=== PATIENT | male | born 1965 | race Caucasian/White ===

== ENCOUNTER → 2016-11-19 | Outpatient (CLI) | payer OTHER | LOC: FIMAGING 09:14 | PROVIDERS: ATTEND Physician Assistant | DX: K70.30 Alcoholic cirrhosis of liver without ascites (principal); K80.20 Calculus of gallbladder without cholecystitis without obstruction; N28.1 Cyst of kidney, acquired ==

== ENCOUNTER 2017-01-01 15:23 | Observation (INO) | payer OTHER ==
--- NOTE | 2017-01-01 17:14 | EDPHY ---
H & P Stated Complaint: Epigastric, RUQ abdo pain, chills. Time Seen by Provider: 01/01/17 17:01 - Personal History Current Tetanus/Diphtheria Vaccine: Unsure Current Tetanus Diphtheria and Acellular Pertussis (TDAP): Unsure - Medical/Surgical History Hx Asthma: No Hx Chronic Respiratory Disease: No Hx Diabetes: No Hx Cardiac Disease: No Hx Renal Disease: No Hx Cirrhosis: Yes Hx Alcoholism: Yes Hx HIV/AIDS: No Hx Splenectomy or Spleen Trauma: No Other PMH: Gall stones, alcoholism-last drink 3 years, oesophageal varies. - Social History Smoking Status: Former smoker Constitutional: Initial Vital Signs Temperature (C) 36.9 C 01/01/17 16:03 Heart Rate 71 01/01/17 16:03 Respiratory Rate 16 01/01/17 16:03 Blood Pressure 127/80 H 01/01/17 16:03 O2 Sat (%) 97 01/01/17 16:03 O2 Delivery Mode Room Air Allergies/Adverse Reactions: No Known Allergies Allergy (Verified 01/01/17 16:08) Home Medications: Medication Instructions Recorded Albuterol Sulfate [Proair Hfa] 1 - 2 puffs IH Q4-6PRN PRN 01/01/17 Cholecalciferol Vit D3 [Vitamin D3] 400 units PO DAILY 01/01/17 Furosemide [Lasix 40 MG (*)] 80 mg PO DAILY 01/01/17 Multivitamins [Multivitamin (*)] 1 each PO DAILY 01/01/17 Rifaximin [Xifaxan] 550 mg PO BID 01/01/17 Spironolactone [Aldactone 50 MG 100 mg PO DAILY 01/01/17 (RX)] Medical Decision Making - Diagnostics Imaging Results: Imaging Impressions Abdomen Ultrasound 01/01/17 17:14 Impression: 1. Cholelithiasis in association with right upper quadrant Alex sign may reflect acute cholecystitis. As clinically directed a HIDA scan could be considered for further assessment. 2. Lobulated hepatic contour consistent with cirrhosis. Results called and discussed with Chau Barker MD on 01/01/2017 at 18:22 Imaging: Discussed imaging studies w/ cell cleaner Radiologist ED Course/Re-evaluation: CHIEF COMPLAINT: Abdominal pain HISTORY OF PRESENT ILLNESS: The patient is a 51 y/o male with known gallstones complaining of abdominal pain onset 3 days ago. He says, "it hurts when I drink water or eat" and he's had an associated weight loss of 2-3lbs per day since onset. His last ultrasound 1.5 years ago showed 3 gallstones. He is followed by his GI, Dr. Romero. He denies vomiting, diarrhea, fever, chest pain, or dyspnea. REVIEW OF SYSTEMS: A 10 point review of systems was performed and is negative with the exception of the elements mentioned in the history of present illness. PHYSICAL EXAM: HR, BP, O2 Sat, RR. Temp noted General Appearance: Alert, well hydrated, appropriate, and non-toxic appearing. Head: Atraumatic without scalp tenderness or obvious injury Eyes: Pupils equal, round, reactive to light and accommodation, EOMI, no trauma , no injection. Nose: Atraumatic, no rhinorrhea, clear. Throat: Mucus membranes moist. Neck: Supple Respiratory: No retractions, no distress, no wheezes, and no accessory muscle use. Lungs are clear to auscultation bilaterally. Cardiovascular: Regular rate and rhythm, no murmurs, rubs, or gallops. Good capillary refill all extremities. Gastrointestinal: Abdomen is soft, Alex's sign with RUQ tenderness, non- distended, no masses, no rebound, no guarding, no peritoneal signs. Musculoskeletal: Normal active ROM of all extremities, atraumatic. Neurological: Alert, appropriate, and interactive. Nonfocal neuro exam. Skin: No rashes, good turgor, no nodules on palpation. PAST MEDICAL HISTORY: gallstones, history of alcoholic ascites PAST SURGICAL HISTORY: denies SOCIAL HISTORY: Lives with his parents. History of alcoholism, reports current sobriety DIAGNOSTICS/PROCEDURES/CRITICAL CARE TIME: RUQ US: Cholelithiasis DIFFERENTIAL DIAGNOSIS: The differential diagnosis for the patient's abdominal pain included but was not limited to appendicitis, cholecystitis, hernias, testicular torsion, gastritis, and urinary tract infection. MEDICAL DECISION MAKING: This is a 51 y/o male with a history of alcoholism and known gallstones who presents with a 3-day history of RUQ pain, weight loss, and difficulty eating due to pain. He has a positive Alex's sign and RUQ tenderness without peritoneal signs on exam. Plan for IV, labs including LFTs, and RUQ US to rule out cholecystitis. US shows cholelithiasis. WBC elevated indicates infection. Surgeon paged. 1mg IV Dilaudid administered for pain. 184: Consulted with Dr. Juan, surgeon. He will assess patient in the ED. Dr. Juan recommends a HIDA scan and will consult during admission. Dr. Ponce will admit patient for possible cholecystitis and ongoing abdominal pain. - Data Points Laboratory Results: Laboratory Results 01/01/17 17:10 01/01/17 17:10 01/01/17 01/01/17 01/01/17 17:10 17:10 17:10 WBC 10.83 10^3/uL H 10^3/uL (3.80-9.50) RBC 5.38 10^6/uL 10^6/uL (4.40-6.38) Hgb 17.3 g/dL g/dL (13.7-17.5) Hct 48.2 % % (40.0-51.0) MCV 89.6 fL fL (81.5-99.8) MCH 32.2 pg pg (27.9-34.1) MCHC 35.9 g/dL g/dL (32.4-36.7) RDW 11.9 % % (11.5-15.2) Plt Count 280 10^3/uL 10^3/uL (150-400) MPV 10.5 fL fL (8.7-11.7) Neut % (Auto) 84.2 % H % (39.3-74.2) Lymph % (Auto) 8.4 % L % (15.0-45.0) [place] % (Auto) 5.3 % % (4.5-13.0) Eos % (Auto) 1.1 % % (0.6-7.6) Baso % (Auto) 0.6 % % (0.3-1.7) Nucleat RBC Rel Count 0.0 % % (0.0-0.2) Absolute Neuts (auto) 9.13 10^3/uL H 10^3/uL (1.70-6.50) Absolute Lymphs (auto) 0.91 10^3/uL L 10^3/uL (1.00-3.00) Absolute Monos (auto) 0.57 10^3/uL 10^3/uL (0.30-0.80) Absolute Eos (auto) 0.12 10^3/uL 10^3/uL (0.03-0.40) Absolute Basos (auto) 0.06 10^3/uL 10^3/uL (0.02-0.10) Absolute Nucleated RBC 0.00 10^3/uL 10^3/uL (0-0.01) Immature Gran % 0.4 % % (0.0-1.1) Immature Gran # 0.04 10^3/uL 10^3/uL (0.00-0.10) PT 13.1 SEC SEC (12.0-15.0) INR 1.00 (0.83-1.16) APTT 31.7 SEC SEC (23.0-38.0) Sodium 142 mEq/L mEq/L (134-144) Potassium 4.0 mEq/L mEq/L (3.5-5.2) Chloride 101 mEq/L mEq/L (97-110) Carbon Dioxide 24 mEq/l mEq/l (22-31) Anion Gap 17 mEq/L H mEq/L (8-16) BUN 17 mg/dL mg/dL (7-23) Creatinine 1.2 mg/dL mg/dL (0.7-1.3) Estimated GFR > 60 Glucose 94 mg/dL mg/dL (70-100) Calcium 9.9 mg/dL mg/dL (8.5-10.4) Total Bilirubin 1.9 mg/dL H mg/dL (0.1-1.4) Conjugated Bilirubin 0.9 mg/dL H mg/dL (0.0-0.5) Unconjugated Bilirubin 1.0 mg/dL mg/dL (0.0-1.1) AST 143 IU/L H IU/L (17-59) ALT 117 IU/L H IU/L (21-72) Alkaline Phosphatase 81 IU/L IU/L (38-126) Total Protein 8.2 g/dL g/dL (6.3-8.2) Albumin 5.1 g/dL H g/dL (3.5-5.0) Lipase 105.0 IU/L IU/L (23-300) Medications Given: Discontinued Medications Hydromorphone HCl (Dilaudid) 1 mg IVP EDNOW ONE Stop: 01/01/17 18:38 Last Admin: 01/01/17 18:53 Dose: 1 mg Sodium Chloride (Ns) 1,000 mls @ 0 mls/hr IV ONCE ONE; Wide Open PRN Reason: Protocol Stop: 01/01/17 17:47 Last Admin: 01/01/17 17:47 Dose: 1,000 mls Ertapenem 1 gm/ Sodium (Chloride) 100 mls @ 200 mls/hr IV EDNOW ONE PRN Reason: Protocol Stop: 01/01/17 19:18 Last Admin: 01/01/17 19:05 Dose: 100 mls Ondansetron HCl (Zofran) 4 mg IVP ONCE ONE Stop: 01/01/17 18:57 Last Admin: 01/01/17 19:02 Dose: 4 mg Departure - Departure Disposition: [facility] Acute Clinical Impression: Cholecystitis Condition: Fair
[2017-01-01 17:22] LABS: % IMMATURE GRANULYOCYTES 0.4 % (0.0-1.1); ABSOLUTE IMMATURE GRANULOCYTES 0.04 10^3/uL (0.00-0.10); ADD DIFF? NO; ADD MORPH? NO; ADD SCAN? NO; ATYPICAL LYMPHOCYTE FLAG 0 (0-99); FRAGMENT RBC FLAG 0 (0-99); HEMATOCRIT 48.2 % (40.0-51.0); HEMOGLOBIN 17.3 g/dL (13.7-17.5); LEFT SHIFT FLG 0 (0-99); LIPEMIA HEMOLYSIS FLAG 90 (0-99); MEAN CELL HEMOGLOBIN 32.2 pg (27.9-34.1); MEAN CELL HEMOGLOBIN CONCENTR. 35.9 g/dL (32.4-36.7); MEAN CELL VOLUME 89.6 fL (81.5-99.8); MEAN PLATELET VOLUME 10.5 fL (8.7-11.7); PLATELET CLUMPS FLAG 0 (0-99); PLATELET COUNT 280 10^3/uL (150-400); RED BLOOD CELL COUNT 5.38 10^6/uL (4.40-6.38); RED CELL DISTRIBUTION WIDTH 11.9 % (11.5-15.2)
[2017-01-01 17:35] LABS: ALANINE AMINOTRANSFERASE 117 IU/L (21-72); ALBUMIN 5.1 g/dL (3.5-5.0); ALKALINE PHOSPHATASE 81 IU/L (38-126); ANION GAP 17 mEq/L (8-16); ASPARTATE AMINOTRANSFERASE 143 IU/L (17-59); BILIRUBIN,TOTAL 1.9 mg/dL (0.1-1.4); BILIRUBIN-CONJUGATED 0.9 mg/dL (0.0-0.5); CALCIUM 9.9 mg/dL (8.5-10.4); CARBON DIOXIDE 24 mEq/l (22-31); CHLORIDE 101 mEq/L (97-110); CREATININE 1.2 mg/dL (0.7-1.3); GLOMERULAR FILTRATION RATE > 60; GLUCOSE 94 mg/dL (70-100); SODIUM 142 mEq/L (134-144); TOTAL PROTEIN 8.2 g/dL (6.3-8.2)
[2017-01-01] MEDS ORDERED: NS 1,000 ML IV ONE (17:46)
[2017-01-01] MEDS ORDERED: HYDROmorphONE/DILAUDID 1 MG/ML SYR IVP ONE (18:37)
[2017-01-01] MEDS ORDERED: ERTAPENEM 1 GM in NS 100 ML IV ONE (18:49)
[2017-01-01] MEDS ORDERED: ONDANSETRON 4 MG/2 ML VIAL IVP ONE (18:56)
[2017-01-01] MEDS ORDERED: ONDANSETRON 4 MG/2 ML VIAL ONE (18:58)
[2017-01-01 19:00] LABS: PROTIME(PATIENT) 13.1 SEC (12.0-15.0)
[2017-01-01 19:01] LABS: APTT 31.7 SEC (23.0-38.0)
--- NOTE | 2017-01-01 20:24 | PDGENHP ---
History and Physical - Chief Complaint Abdominal pain - History of Present Illness 51-year-old male presents with a multiple day history of abdominal pain. Briefly the patient presents complaining of of a right upper quadrant pain which she states has been there at least some level for the past few days. He states that today the pain worsened, while he was eating breakfast the pain became fairly excruciating and was associated with nausea and vomiting. The patient subsequently presented here complaining of the above. He states that the pain is nonradiating, is crampy, is better when he lies on that side with a pillow, also better with Dilaudid. Worse with certain movements. The patient is a fairly significant past medical history as he has a component of underlying cirrhosis. Of note, the patient used to be a fairly big drinker drinking a L of rum a day and his had significant hospitalizations both here and at [facility] in the past for both liver and renal failure. The patient states that he has been sober for the last 5 years [address] with [address] Romero of Gastroenterology. He denies fevers and chills states that other than the pain he feels well. Currently disabled and lives with his parents. History Information - Allergies/Home Medication List Allergies/Adverse Reactions: corn/mushrooms Allergy (Uncoded 01/01/17 20:02) Home Medications: Albuterol Sulfate [Proair Hfa] 1 - 2 puffs IH Q4-6PRN PRN 01/01/17 [Last Taken Unknown] Cholecalciferol Vit D3 [Vitamin D3] 400 units PO DAILY 01/01/17 [Last Taken Unknown] Furosemide [Lasix 40 MG (*)] 80 mg PO DAILY 01/01/17 [Last Taken 01/01/17] Multivitamins [Multivitamin (*)] 1 each PO DAILY 01/01/17 [Last Taken 01/01/17] Rifaximin [Xifaxan] 550 mg PO BID 01/01/17 [Last Taken 01/01/17] Spironolactone [Aldactone 50 MG (RX)] 100 mg PO DAILY 01/01/17 [Last Taken 01/01] I have personally reviewed and updated: family history, medical history, social history, surgical history Past Medical History: Alcoholic cirrhosis, gallstones, esophageal varices, ascites - Surgical History Additional surgical history: Has had his esophageal varices banded in the past, has also had large volume paracentesis performed in the past, denies having any abdominal procedures performed - Family History Positive for: non-pertinent - Social History Smoking Status: Former smoker Alcohol Use: Sober Additional social history: Significant alcohol abuse in the past, currently disabled lives with parents. States that he has been sober for 5 years Review of Systems ROS: 10pt was reviewed & negative except for what was stated in HPI & below Physical Exam Temp Pulse Resp BP Pulse Ox 36.7 C 65 16 102/79 93 01/01/17 19:47 01/01/17 19:47 01/01/17 19:47 01/01/17 19:47 01/01/17 19:47 Constitutional: no apparent distress, appears nourished, not in pain Eyes: PERRL, anicteric sclera, EOMI, No icteric sclera Ears, Nose, Mouth, Throat: moist mucous membranes, hearing normal, ears appear normal, no oral mucosal ulcers Cardiovascular: regular rate and rhythym, no murmur, rub, or gallop, No edema Respiratory: no respiratory distress, no rales or rhonchi, clear to auscultation Gastrointestinal: other (Soft, nontender, nondistended, negative Alex sign, negative fluid wave) Skin: warm, normal color, no rashes or abrasions, no fluctuance, no induration, No mottled Musculoskeletal: full muscle strength, no muscle tenderness, normal joint ROM, no joint effusions Neurologic: AAOx3, sensation intact bilaterally, No weakness, No numbness, No pronator drift, No asterixes Psychiatric: interacting appropriately, not encephalopathic, thought process linear, anxious Lymph, Heme, Immunologic: no cervical LAD, no supraclavicular LAD Lab Data & Imaging Review 01/01/17 17:10 01/01/17 17:10 WBC 10.83 10^3/uL (3.80-9.50) H 01/01/17 17:10 RBC 5.38 10^6/uL (4.40-6.38) 01/01/17 17:10 Hgb 17.3 g/dL (13.7-17.5) 01/01/17 17:10 Hct 48.2 % (40.0-51.0) 01/01/17 17:10 MCV 89.6 fL (81.5-99.8) 01/01/17 17:10 MCH 32.2 pg (27.9-34.1) 01/01/17 17:10 MCHC 35.9 g/dL (32.4-36.7) 01/01/17 17:10 RDW 11.9 % (11.5-15.2) 01/01/17 17:10 Plt Count 280 10^3/uL (150-400) 01/01/17 17:10 MPV 10.5 fL (8.7-11.7) 01/01/17 17:10 Neut % (Auto) 84.2 % (39.3-74.2) H 01/01/17 17:10 Lymph % (Auto) 8.4 % (15.0-45.0) L 01/01/17 17:10 [place] % (Auto) 5.3 % (4.5-13.0) 01/01/17 17:10 Eos % (Auto) 1.1 % (0.6-7.6) 01/01/17 17:10 Baso % (Auto) 0.6 % (0.3-1.7) 01/01/17 17:10 Nucleat RBC Rel Count 0.0 % (0.0-0.2) 01/01/17 17:10 Absolute Neuts (auto) 9.13 10^3/uL (1.70-6.50) H 01/01/17 17:10 Absolute Lymphs (auto) 0.91 10^3/uL (1.00-3.00) L 01/01/17 17:10 Absolute Monos (auto) 0.57 10^3/uL (0.30-0.80) 01/01/17 17:10 Absolute Eos (auto) 0.12 10^3/uL (0.03-0.40) 01/01/17 17:10 Absolute Basos (auto) 0.06 10^3/uL (0.02-0.10) 01/01/17 17:10 Absolute Nucleated RBC 0.00 10^3/uL (0-0.01) 01/01/17 17:10 Immature Gran % 0.4 % (0.0-1.1) 01/01/17 17:10 Immature Gran # 0.04 10^3/uL (0.00-0.10) 01/01/17 17:10 PT 13.1 SEC (12.0-15.0) 01/01/17 17:10 INR 1.00 (0.83-1.16) 01/01/17 17:10 APTT 31.7 SEC (23.0-38.0) 01/01/17 17:10 Sodium 142 mEq/L (134-144) 01/01/17 17:10 Potassium 4.0 mEq/L (3.5-5.2) 01/01/17 17:10 Chloride 101 mEq/L (97-110) 01/01/17 17:10 Carbon Dioxide 24 mEq/l (22-31) 01/01/17 17:10 Anion Gap 17 mEq/L (8-16) H 01/01/17 17:10 BUN 17 mg/dL (7-23) 01/01/17 17:10 Creatinine 1.2 mg/dL (0.7-1.3) 01/01/17 17:10 Estimated GFR > 60 01/01/17 17:10 Glucose 94 mg/dL (70-100) 01/01/17 17:10 Calcium 9.9 mg/dL (8.5-10.4) 01/01/17 17:10 Total Bilirubin 1.9 mg/dL (0.1-1.4) H 01/01/17 17:10 Conjugated Bilirubin 0.9 mg/dL (0.0-0.5) H 01/01/17 17:10 Unconjugated Bilirubin 1.0 mg/dL (0.0-1.1) 01/01/17 17:10 AST 143 IU/L (17-59) H 01/01/17 17:10 ALT 117 IU/L (21-72) H 01/01/17 17:10 Alkaline Phosphatase 81 IU/L (38-126) 01/01/17 17:10 Total Protein 8.2 g/dL (6.3-8.2) 01/01/17 17:10 Albumin 5.1 g/dL (3.5-5.0) H 01/01/17 17:10 Lipase 105.0 IU/L (23-300) 01/01/17 17:10 Visualized and Interpreted imaging results: Yes Interpretation: Ultrasound shows gallstones, normal gallbladder wall, no pericholecystic fluid, normal ducts, cirrhosis Assessment & Plan Assessment: Right upper quadrant pain, query cholecystitis versus cirrhosis Plan: Patient is a very unclear picture at this point time in the only findings that are consistent with cholecystitis are his pain, and finding of gallstones but the ultrasound really shows no other stigmata consistent with cholecystitis including no pericholecystic fluid, and no gallbladder wall thickening. Given the fact that the patient has what I would assume is fairly significant cirrhosis I feel that jumping to a diagnosis of cholecystitis is premature. Although the patient has been sober for the last 5 years, I still feel that he has a significant amount of underlying liver dysfunction and likely residual abdominal varices. In addition, his history is not 100% consistent with cholecystitis as well as he has had somewhat of a vague abdominal pain for a while and it is unclear whether food always exacerbates it. He may very well have cholecystitis but I feel that we need to do our due diligence before rushing up to the operating room as I feel his abdomen could be quite hostile. I feel that we need to get Gastroenterology involved is a have been following him chronically as an outpatient. I do feel that a HIDA scan would be helpful in evaluating whether not the patient has cholecystitis. If he should have imaging findings of cholecystitis would discuss whether not he is a reasonable surgical candidate for cholecystectomy, but he does not appear to have cholecystitis at this time. Appreciate Medicine admit, will continue to follow with you and continue work this up as appropriate
[2017-01-01] MEDS ORDERED: ONDANSETRON 4 MG/2 ML VIAL IVP PRN (20:25)
[2017-01-01] MEDS ORDERED: NS 1,000 ML IV SCH (20:30)
[2017-01-01] MEDS ORDERED: ACETAMINOPHEN 325 MG TAB PO PRN (21:22)
[2017-01-01] MEDS ORDERED: HYDROmorphONE/DILAUDID 1 MG/ML SYR IVP PRN (21:22)
[2017-01-01] MEDS ORDERED: ALBUTEROL 3 ML DEYVIAL IH PRN (21:22)
--- NOTE | 2017-01-01 21:45 | PDGENHP ---
History and Physical - Chief Complaint abdominal pain - History of Present Illness 51-year-old male presents with 3 weeks hx of RUQ abdominal pain worse after eating. In the E.D. found to have Leukocytosis and concern for cholecystitis and started on Invanz and given IV Dilaudid. Feels better now. Denies any active pain. Afebrile. Surgery has evaluated him and the diagnosis of cholecystitis is unclear and given his hx of advanced liver disease we have been asked to admit. He has a hx of liver disease and is on Xifaxan and diuretics for quite some time. He reports no ETOH in 5 years. He has not had any fever or chills. He does not have a distended abdomen. He is not having diarrhea. He does appear jaundice which he says is new for him. He follows with Dr. Romero of Gastroenterology. Currently disabled and lives with his parents. Denies CP, SOB, N/V/D, chills, diaphoresis Past Medical History: Alcoholic cirrhosis, gallstones, esophageal varices, ascites, advanced liver disease, hx of alcoholism (quit 5 years ago) surgical history: esophageal varices banded in the past, has also had large volume paracentesis performed in the past FmHx: reviewed. Non contributory SocHx: former smoker, significant previous ETOH use. Disabled. Lives with parents. Studies: Ultrasound shows gallstones, normal gallbladder wall, no pericholecystic fluid, normal ducts, cirrhosis History Information - Allergies/Home Medication List Allergies/Adverse Reactions: corn/mushrooms Allergy (Uncoded 01/01/17 20:02) Home Medications: Albuterol Sulfate [Proair Hfa] 1 - 2 puffs IH Q4-6PRN PRN 01/01/17 [Last Taken Unknown] Cholecalciferol Vit D3 [Vitamin D3] 400 units PO DAILY 01/01/17 [Last Taken Unknown] Furosemide [Lasix 40 MG (*)] 80 mg PO DAILY 01/01/17 [Last Taken 01/01/17] Multivitamins [Multivitamin (*)] 1 each PO DAILY 01/01/17 [Last Taken 01/01/17] Rifaximin [Xifaxan] 550 mg PO BID 01/01/17 [Last Taken 01/01/17] Spironolactone [Aldactone 50 MG (RX)] 100 mg PO DAILY 01/01/17 [Last Taken 01/01] I have personally reviewed and updated: medical history, social history Past Medical History: Alcoholic cirrhosis, gallstones, esophageal varices, ascites - Surgical History Additional surgical history: Has had his esophageal varices banded in the past, has also had large volume paracentesis performed in the past, denies having any abdominal procedures performed - Family History Positive for: non-pertinent - Social History Smoking Status: Former smoker Alcohol Use: Sober Additional social history: Significant alcohol abuse in the past, currently disabled lives with parents. States that he has been sober for 5 years Review of Systems ROS: 10pt was reviewed & negative except for what was stated in HPI & below Physical Exam Temp Pulse Resp BP Pulse Ox 36.7 C 65 16 102/79 93 01/01/17 19:47 01/01/17 19:47 01/01/17 19:47 01/01/17 19:47 01/01/17 19:47 Constitutional: no apparent distress, other (jaundice) Eyes: PERRL, EOMI Ears, Nose, Mouth, Throat: moist mucous membranes, hearing normal, No dry mucous membranes Cardiovascular: regular rate and rhythym, No JVD, No edema Respiratory: no respiratory distress, clear to auscultation Gastrointestinal: soft, non-tender abdomen, No godinez's sign, No guarding, No rebound, No distension Skin: warm, normal color Musculoskeletal: No generalized weakness Neurologic: AAOx3, CN II-XII Intact, No weakness, No facial droop Psychiatric: interacting appropriately, not anxious, not encephalopathic, thought process linear, No encephalopathic Lab Data & Imaging Review 01/01/17 17:10 01/01/17 17:10 WBC 10.83 10^3/uL (3.80-9.50) H 01/01/17 17:10 RBC 5.38 10^6/uL (4.40-6.38) 01/01/17 17:10 Hgb 17.3 g/dL (13.7-17.5) 01/01/17 17:10 Hct 48.2 % (40.0-51.0) 01/01/17 17:10 MCV 89.6 fL (81.5-99.8) 01/01/17 17:10 MCH 32.2 pg (27.9-34.1) 01/01/17 17:10 MCHC 35.9 g/dL (32.4-36.7) 01/01/17 17:10 RDW 11.9 % (11.5-15.2) 01/01/17 17:10 Plt Count 280 10^3/uL (150-400) 01/01/17 17:10 MPV 10.5 fL (8.7-11.7) 01/01/17 17:10 Neut % (Auto) 84.2 % (39.3-74.2) H 01/01/17 17:10 Lymph % (Auto) 8.4 % (15.0-45.0) L 01/01/17 17:10 [place] % (Auto) 5.3 % (4.5-13.0) 01/01/17 17:10 Eos % (Auto) 1.1 % (0.6-7.6) 01/01/17 17:10 Baso % (Auto) 0.6 % (0.3-1.7) 01/01/17 17:10 Nucleat RBC Rel Count 0.0 % (0.0-0.2) 01/01/17 17:10 Absolute Neuts (auto) 9.13 10^3/uL (1.70-6.50) H 01/01/17 17:10 Absolute Lymphs (auto) 0.91 10^3/uL (1.00-3.00) L 01/01/17 17:10 Absolute Monos (auto) 0.57 10^3/uL (0.30-0.80) 01/01/17 17:10 Absolute Eos (auto) 0.12 10^3/uL (0.03-0.40) 01/01/17 17:10 Absolute Basos (auto) 0.06 10^3/uL (0.02-0.10) 01/01/17 17:10 Absolute Nucleated RBC 0.00 10^3/uL (0-0.01) 01/01/17 17:10 Immature Gran % 0.4 % (0.0-1.1) 01/01/17 17:10 Immature Gran # 0.04 10^3/uL (0.00-0.10) 01/01/17 17:10 PT 13.1 SEC (12.0-15.0) 01/01/17 17:10 INR 1.00 (0.83-1.16) 01/01/17 17:10 APTT 31.7 SEC (23.0-38.0) 01/01/17 17:10 Sodium 142 mEq/L (134-144) 01/01/17 17:10 Potassium 4.0 mEq/L (3.5-5.2) 01/01/17 17:10 Chloride 101 mEq/L (97-110) 01/01/17 17:10 Carbon Dioxide 24 mEq/l (22-31) 01/01/17 17:10 Anion Gap 17 mEq/L (8-16) H 01/01/17 17:10 BUN 17 mg/dL (7-23) 01/01/17 17:10 Creatinine 1.2 mg/dL (0.7-1.3) 01/01/17 17:10 Estimated GFR > 60 01/01/17 17:10 Glucose 94 mg/dL (70-100) 01/01/17 17:10 Calcium 9.9 mg/dL (8.5-10.4) 01/01/17 17:10 Total Bilirubin 1.9 mg/dL (0.1-1.4) H 01/01/17 17:10 Conjugated Bilirubin 0.9 mg/dL (0.0-0.5) H 01/01/17 17:10 Unconjugated Bilirubin 1.0 mg/dL (0.0-1.1) 01/01/17 17:10 AST 143 IU/L (17-59) H 01/01/17 17:10 ALT 117 IU/L (21-72) H 01/01/17 17:10 Alkaline Phosphatase 81 IU/L (38-126) 01/01/17 17:10 Total Protein 8.2 g/dL (6.3-8.2) 01/01/17 17:10 Albumin 5.1 g/dL (3.5-5.0) H 01/01/17 17:10 Lipase 105.0 IU/L (23-300) 01/01/17 17:10 Assessment & Plan Assessment: #?Cholecystitis (Acute) #Advanced Liver Disease with hx of cirrhosis #Hx of Hepatic Encephalopathy #Leukocytosis Plan: He is not symptomatic this evening and has an unremarkable exam. I am not convinced that he has Cholecystitis. He will have a HIDA scan tomorrow. Will determine clinical response and f/u WBC tomorrow to determine need for ongoing abx Cont home meds including Xifaxan and diuretics May need a GI consult Await further reccs from Surgery SCD's Full code
[2017-01-02 05:05] LABS: % IMMATURE GRANULYOCYTES 0.3 % (0.0-1.1); ABSOLUTE IMMATURE GRANULOCYTES 0.02 10^3/uL (0.00-0.10); ADD DIFF? NO; ADD MORPH? NO; ADD SCAN? NO; ATYPICAL LYMPHOCYTE FLAG 0 (0-99); FRAGMENT RBC FLAG 0 (0-99); HEMATOCRIT 41.7 % (40.0-51.0); HEMOGLOBIN 14.9 g/dL (13.7-17.5); LEFT SHIFT FLG 0 (0-99); LIPEMIA HEMOLYSIS FLAG 90 (0-99); MEAN CELL HEMOGLOBIN 32.3 pg (27.9-34.1); MEAN CELL HEMOGLOBIN CONCENTR. 35.7 g/dL (32.4-36.7); MEAN CELL VOLUME 90.3 fL (81.5-99.8); MEAN PLATELET VOLUME 10.3 fL (8.7-11.7); PLATELET CLUMPS FLAG 0 (0-99); PLATELET COUNT 224 10^3/uL (150-400); RED BLOOD CELL COUNT 4.62 10^6/uL (4.40-6.38); RED CELL DISTRIBUTION WIDTH 11.9 % (11.5-15.2)
[2017-01-02 05:18] LABS: INR 1.1 (0.83-1.16); PROTIME(PATIENT) 14.1 SEC (12.0-15.0)
[2017-01-02 05:29] LABS: ALANINE AMINOTRANSFERASE 94 IU/L (21-72); ALBUMIN 3.8 g/dL (3.5-5.0); ALKALINE PHOSPHATASE 59 IU/L (38-126); ANION GAP 11 mEq/L (8-16); ASPARTATE AMINOTRANSFERASE 64 IU/L (17-59); BILIRUBIN,TOTAL 1.1 mg/dL (0.1-1.4); CALCIUM 8.8 mg/dL (8.5-10.4); CARBON DIOXIDE 22 mEq/l (22-31); CHLORIDE 109 mEq/L (97-110); CREATININE 0.9 mg/dL (0.7-1.3); GLOMERULAR FILTRATION RATE > 60; GLUCOSE 86 mg/dL (70-100); MAGNESIUM 1.9 mg/dL (1.6-2.3); POTASSIUM 4.2 mEq/L (3.5-5.2); SODIUM 142 mEq/L (134-144)
[2017-01-02 07:32] VITALS: O2SAT 96
[2017-01-02] MEDS ORDERED: MULTIVITAMINS 1 EACH TAB PO SCH (09:00)
[2017-01-02] MEDS ORDERED: SPIRONOLACTONE 50 MG TAB PO SCH (09:00)
[2017-01-02] MEDS ORDERED: FUROSEMIDE 40 MG TAB PO SCH (09:00)
[2017-01-02] MEDS ORDERED: CHOLECALCIFEROL VIT D3 1,000 UNITS TAB PO SCH (09:00)
[2017-01-02] MEDS ORDERED: RIFAXIMIN 550 MG TAB PO SCH (09:00)
--- NOTE | 2017-01-02 10:42 | SOAPPROG ---
JAN Progress Note Assessment/Plan: Assessment/Plan: - Pain has resolved overnight without intervention, clinically benign abdominal exam - I have cancelled HIDA as patient clinically resolved - Plan to ADAT, did discuss limited diet and eating clean - Will plan to have fu with GI and PCP as outpatient, then fu with me. I do feel that he likely has biliary colic and would benefit from cholecystectomy, but does not need to be done urgently and we have time to optimize medically before proceeding. He is amenable to this and wants to proceed. - Discussed with Dr Kolb. 01/02/17 10:41 Subjective: Denies pain, wants to eat Objective: Vital Signs Temp Pulse Resp BP Pulse Ox 36.6 C 71 16 100/73 96 01/02/17 07:29 01/02/17 07:29 01/02/17 07:29 01/02/17 07:29 01/02/17 07:29 Laboratory Results 01/02/17 04:58 01/02/17 04:58 01/01/17 01/02/17 01/03/17 05:59 05:59 05:59 Intake Total 2100 Balance 2100 PT 14.1 SEC (12.0-15.0) 01/02/17 04:58 INR 1.10 (0.83-1.16) 01/02/17 04:58 ICD10 Worksheet Patient Problems: Problems Problem Status Onset Cholecystitis Acute
[2017-01-02 12:00] VITALS: BP 114/80; PULSE 81; RESP 18; TEMP 98.2
--- NOTE | 2017-01-02 14:34 | GDS ---
[f rep st] DISCHARGE SUMMARY DISCHARGE DIAGNOSES: 1. Resolved abdominal pain of unclear etiology. 2. History of cirrhosis. 3. History of hepatic encephalopathy. 4. Biliary colic. CONSULTANTS: Dr. Juan, General Surgery. HOSPITAL COURSE BY PROBLEM: Abdominal pain: The patient was admitted to the hospital with the init ial diagnosis of possible cholecystitis. An abdominal ultrasound was done on 01/01/2017, which show ed cholelithiasis in association with a right upper quadrant Alex sign. On hospital day #1, the p jarett was for him to undergo a HIDA scan; however, his condition completely resolved. Prior to discha rge, I discussed the case with Dr. Juan, who thought it was reasonable for the patient to adva nce his diet and go home, as long as he is tolerating p.o. intake and is no longer having any abdomi nal pain. He recommended that the patient follow up with GI and his primary care provider as outpat ient. He should follow up with surgery for possible outpatient cholecystectomy. PHYSICAL EXAM: VITAL SIGNS: On day of discharge, blood pressure 114/80, pulse of 81, respiratory r ate 18, O2 saturation 96% on room air. Temperature afebrile. GENERAL: No acute distress. ABDOMEN : Soft, nontender, nondistended. No guarding or rebound tenderness. Negative Alex sign. DISCHARGE MEDICATIONS: Please refer to discharge medication reconciliation in [facility]. DISCHARGE INSTRUCTIONS: The patient will be discharged home where he should follow up with his prim khadar care provider as well as [employer] regarding his cirrhosis. He should also follow up w yodit Juan as an outpatient to schedule elective cholecystectomy. /[id number]/MODL
== END 2017-01-02 12:18 | disposition home or self-care (01) ==
LOC: F1N 19:45
PROVIDERS: ADMIT Surgery; ATTEND Surgery
DX: K80.50 Calculus of bile duct without cholangitis or cholecystitis without obstruction (principal); Z87.19 Personal history of other diseases of the digestive system
CPT/HCPCS: 76705; G0378; J1170; J1335; J2405; 96365

== ENCOUNTER 2017-01-13 07:15 | Day surgery (SDC) | payer OTHER ==
[2017-01-13] MEDS ORDERED: BUPIVACAINE/EPI 0.25% 30 ML SDV ONE (07:39)
--- NOTE | 2017-01-13 08:05 | PDHPUP ---
History & Physical Update H&P update statement: This history and physical update is based on an assessment of the patient which was completed after admission or registration (within 24 hours), but prior to the surgery/procedure. H&P update: H&P reviewed & patient examined, no change in patient's condition since H&P completed
[2017-01-13] MEDS ORDERED: ceFAZolin 2 GM/DEXTROSE 100 ML IV ONE (08:45)
[2017-01-13] MEDS ORDERED: LR 1,000 ML IV ONE (08:48)
[2017-01-13] MEDS ORDERED: LIDOCAINE 1% 2 ML INJ ID PRN (08:48)
[2017-01-13] MEDS ORDERED: LIDOCAINE 1% 2 ML INJ ONE (09:05)
[2017-01-13 09:42] LABS: % IMMATURE GRANULYOCYTES 0.5 % (0.0-1.1); ABSOLUTE IMMATURE GRANULOCYTES 0.05 10^3/uL (0.00-0.10); ADD DIFF? NO; ADD MORPH? NO; ADD SCAN? NO; ATYPICAL LYMPHOCYTE FLAG 0 (0-99); FRAGMENT RBC FLAG 0 (0-99); HEMATOCRIT 45.3 % (40.0-51.0); HEMOGLOBIN 16.1 g/dL (13.7-17.5); LEFT SHIFT FLG 0 (0-99); LIPEMIA HEMOLYSIS FLAG 90 (0-99); MEAN CELL HEMOGLOBIN 32.2 pg (27.9-34.1); MEAN CELL HEMOGLOBIN CONCENTR. 35.5 g/dL (32.4-36.7); MEAN CELL VOLUME 90.6 fL (81.5-99.8); MEAN PLATELET VOLUME 10.8 fL (8.7-11.7); PLATELET CLUMPS FLAG 0 (0-99); PLATELET COUNT 258 10^3/uL (150-400)
[2017-01-13] MEDS ORDERED: PROPOFOL 200 MG/20 ML VIAL ONE (09:42)
[2017-01-13] MEDS ORDERED: fentaNYL 100 MCG/2 ML INJ ONE ×3 (09:44→11:03)
[2017-01-13 09:48] LABS: ALANINE AMINOTRANSFERASE 44 IU/L (21-72); ALBUMIN 4.3 g/dL (3.5-5.0); ALKALINE PHOSPHATASE 47 IU/L (38-126); ANION GAP 11 mEq/L (8-16); ASPARTATE AMINOTRANSFERASE 30 IU/L (17-59); BILIRUBIN,TOTAL 0.8 mg/dL (0.1-1.4); CALCIUM 9.6 mg/dL (8.5-10.4); CARBON DIOXIDE 27 mEq/l (22-31); CHLORIDE 101 mEq/L (97-110); CREATININE 0.9 mg/dL (0.7-1.3); GLOMERULAR FILTRATION RATE > 60; GLUCOSE 86 mg/dL (70-100); SODIUM 139 mEq/L (134-144); TOTAL PROTEIN 7.1 g/dL (6.3-8.2)
[2017-01-13] MEDS ORDERED: ROCURONIUM 50 MG/5 ML VIAL ONE (09:48)
[2017-01-13] MEDS ORDERED: METOCLOPRAMIDE 10 MG/2 ML VIAL ONE (09:48)
[2017-01-13] MEDS ORDERED: DEXAMETHASONE 4 MG/ML VIAL ONE (09:49)
[2017-01-13] MEDS ORDERED: ONDANSETRON 4 MG/2 ML VIAL ONE (09:49)
[2017-01-13 09:51] LABS: APTT 32.6 SEC (23.0-38.0); INR 1.01 (0.83-1.16); PROTIME(PATIENT) 13.2 SEC (12.0-15.0)
[2017-01-13] MEDS ORDERED: OXYCODONE/APAP 5/325 TAB PO PRN (09:57)
[2017-01-13] MEDS ORDERED: fentaNYL 100 MCG/2 ML INJ IVP PRN ×2 (09:57)
[2017-01-13] MEDS ORDERED: HYDROmorphONE/DILAUDID 1 MG/ML SYR IVP PRN (09:57)
[2017-01-13] MEDS ORDERED: NALOXONE HCL 0.4 MG/ML INJ IVP PRN (09:57)
[2017-01-13] MEDS ORDERED: ONDANSETRON 4 MG/2 ML VIAL IVP PRN (09:57)
[2017-01-13] MEDS ORDERED: HYDROCODONE/APAP 5/325 TAB PO PRN (09:57)
--- NOTE | 2017-01-13 09:57 | PDANEPAE ---
ANE History of Present Illness Dayana Avelaroe HERMINIO Past Medical History - Cardiovascular History Hx Hypertension: No Hx Arrhythmias: No Hx Chest Pain: No Hx Coronary Artery / Peripheral Vascular Disease: No Hx CHF / Valvular Disease: No Hx Palpitations: No - Pulmonary History Hx COPD: No Hx Asthma/Reactive Airway Disease: Yes Hx Recent Upper Respiratory Infection: No Hx Oxygen in Use at Home: No Hx Sleep Apnea: No Sleep Apnea Screening Result - Last Documented: Negative Pulmonary History Comment: ASTHMA ENVIRONMENTAL TRIGGERS - Endocrine History Hx Diabetes: No - Renal History Hx Renal Disorders: No - Liver History Hx Hepatic Disorders: Yes Hepatic History Comment: HEPATIC ENCEPHALOPATHY - Neurological & Psychiatric Hx Hx Neurological and Psychiatric Disorders: No - Cancer History Hx Cancer: No - Congenital Disorder History Hx Congenital Disorders: No - GI History Hx Gastrointestinal Disorders: Yes Gastrointestinal History Comment: CIRRHOSIS. ESOPHAGEAL VARICES - Other Health History Other Health History: STAP 10/2012. LT SHLDR. LIMITED ROM - Chronic Pain History Chronic Pain: Yes (LOWER BACK) - Surgical History Prior Surgeries: CARMELA STRABISMUS. LT KNEE. ESOPHAGEAL VARICES ANE Review of Systems Review of systems is: negative - Exercise capacity METS (RN): 4 METS ANE Patient History - Allergies Allergies/Adverse Reactions: corn/mushrooms Allergy (Uncoded 01/13/17 09:03) - Home Medications Home Medications: Albuterol Sulfate [Proair Hfa] 1 - 2 puffs IH Q4-6PRN PRN 01/01/17 [Last Taken 2 Months Ago] Cholecalciferol Vit D3 [Vitamin D3] 400 units PO DAILY 01/01/17 [Last Taken 12/220] Furosemide [Lasix 40 MG (*)] 80 mg PO DAILY06 01/01/17 [Last Taken 01/12/17 80 MG] Multivitamins [Multivitamin (*)] 1 each PO DAILY 01/01/17 [Last Taken 01/12/17 1 EACH] Rifaximin [Xifaxan] 550 mg PO BID 01/01/17 [Last Taken 01/12/17 1900] Spironolactone [Aldactone] 100 mg PO DAILY06 01/01/17 [Last Taken 01/12/17 100 MG] - NPO status NPO Since - Liquids (Date): 01/12/17 NPO Since - Liquids (Time): 23:00 NPO Since - Solids (Date): 01/12/17 NPO Since - Solids (Time): 21:00 - Smoking Hx Smoking Status: Former smoker ANE Labs/Vital Signs - Labs Result Diagrams: 01/13/17 08:45 01/13/17 08:45 - Vital Signs Blood Pressure: 94/71 Heart Rate: 65 Respiratory Rate: 18 O2 Sat (%): 97 Height: 175.3 cm Weight: 79.4 kg ANE Physical Exam - Airway Neck exam: FROM Mallampati Score: Class 2 Mouth exam: normal dental/mouth exam - Pulmonary Pulmonary: clear to auscultation - Cardiovascular Cardiovascular: regular rate and rhythym ANE Anesthesia Plan Anesthesia Plan: general endotracheal anesthesia
[2017-01-13] MEDS ORDERED: SUGAMMADEX SODIUM 200 MG/2 ML VIAL IVP ONE (10:26)
--- NOTE | 2017-01-13 10:46 | POSTOPPROG ---
Post Op Note Date of Operation: 01/13/17 Surgeon: Bronson Juan Cafe Manager: Jhon Anesthesiologist: Scott Anesthesia: GET(General Endotracheal) Pre-op Diagnosis: Biliary colic Post-op Diagnosis: chronic cholecystitis Procedure: lap lucy with liver bx Findings: cirrhosis present, friable GB wall. Critical view obtained Inf/Abcess present in the surg proc area at time of surgery?: No EBL: Minimal Specimen(s): gallbladder liver biopsy
--- NOTE | 2017-01-13 11:00 | POSTANESTH ---
Post Anesthetic Evaluation Cardiovascular Status: Normal, Stable Respiratory Status: Normal, Stable Pain Control: Adequate, Prn Tx Ordered Nausea/Vomiting Control: Adequate, Prn Tx Ordered Complications Possibly Related to Anesthesia: None Noted
[2017-01-13] MEDS ORDERED: HYDROCODONE/APAP 5/325 TAB ONE (12:20)
[2017-01-13 12:55] VITALS: O2SAT 91
[2017-01-13 16:05] VITALS: BP 110/82; PULSE 76; RESP 16; TEMP 97.9
--- NOTE | 2017-01-13 17:07 | GOP ---
[f rep st] OPERATIVE REPORT DATE OF OPERATION: 01/13/2017 SURGEON: Bronson Juan MD BROACH TROUBLE SHOOTER: Selma Ferreira, MEREDITH ANESTHESIA: General endotracheal provided by Dr. Chavez. PREOPERATIVE DIAGNOSIS: Biliary colic. POSTOPERATIVE DIAGNOSIS: Chronic cholecystitis. PROCEDURE PERFORMED: Laparoscopic cholecystectomy with liver biopsy. FINDINGS: Gallbladder wall was very friable and tenuous. Critical view was obtained. Liver biopsy successfully taken from the outer edge. Hemostasis achieved with electrocautery. SPECIMENS: 1. Gallbladder. 2. Liver biopsy. ESTIMATED BLOOD LOSS: 5 cc DESCRIPTION OF PROCEDURE: The patient was greeted in the preoperative suite. Once again, risks, be nefits, and alternatives were discussed. Consent was signed. He was then brought back to the opera tive suite, placed on the OR table in a supine position. After all anesthesia machines, including S CDs, were on and functioning a [employer] time-out was performed. After successful i nduction of general anesthesia, the patient's abdomen was prepped and draped in typical sterile fash ion. I entered the abdomen using a cutdown infraumbilically through which I passed a Veress needle and achieved pneumoperitoneum to 15 mmHg which was well tolerated by the patient. Through this, I p laced a 12 mm port using the Visiport technique. I then placed 3 additional 5 mm ports, 1 in the gomez bxiphoid, 2 in the right upper quadrant all under direct visualization. There were some adhesions t o the edge of the liver which were successfully taken down sharply. I then grasped the gallbladder and successfully retracted it over the liver edge. I grasped the infundibulum, and through a combin ation of electrocautery and blunt dissection I was able to identify 2 and only 2 structures leading toward the gallbladder. After skeletonizing these and ensuring that I had a critical view I clipped them 2 proximally 1 distally, and divided them 1st the duct then the artery. After successful divi dawson I then took the gallbladder off the bed of the liver using electrocautery. Stones were spilled during this process. All of them were retrieved. After successful removal it was placed in an End oCatch bag and removed. The right upper quadrant was then copiously irrigated and hemostasis was ac hieved with electrocautery. I chose a site in the midportion of the right lateral liver, performed a liver biopsy which was obtained sharply. It was then removed. I then obtained hemostasis at this site with electrocautery. Once again I then instilled local anesthesia into all port sites. They were then removed under direct visualization after ensuring hemostasis. After this was done, I clos ed my 12 mm port site with an interrupted 0 Vicryl stitch in a [id number] fashion. The skin wa s closed with running 4-0 Monocryl over which Dermabond was placed. The patient was then extubated in the operative suite and taken to the PACU in satisfactory condition. SURGEON: Bronson Juan MD DRAINS: None. COUNTS: All counts were reported as correct x2. /[id number]/MODL
== END 2017-01-13 13:21 | disposition home or self-care (01) ==
LOC: FSGY 07:15
PROVIDERS: ATTEND Surgery
PROC: 0FT44ZZ Resection of Gallbladder, Percutaneous Endoscopic Approach (ICD-10-PCS; principal; 2017-01-13 09:30)
PROC: 0FB14ZX Excision of Right Lobe Liver, Percutaneous Endoscopic Approach, Diagnostic (ICD-10-PCS; principal; 2017-01-13 09:30)
DX: K80.10 Calculus of gallbladder with chronic cholecystitis without obstruction (principal); K75.9 Inflammatory liver disease, unspecified; K70.30 Alcoholic cirrhosis of liver without ascites; F10.21 Alcohol dependence, in remission; Z87.891 Personal history of nicotine dependence
CPT/HCPCS: J0690; J1100; J2405; J2704; J2765; J3010